=== PATIENT | female | born 1965 | race Caucasian/White ===

== ENCOUNTER 2017-03-30 10:29 | Day surgery (SDC) | payer OTHER ==
[2017-03-30] MEDS ORDERED: LACTATED RINGERS 1,000 ML IV ONE (10:49)
[2017-03-30] MEDS ORDERED: MIDAZOLAM 2 MG/2 ML VIAL IVP ONE (11:22)
[2017-03-30] MEDS ORDERED: fentaNYL 100 MCG/2 ML VIAL IVP ONE (11:22)
== END 2017-03-30 10:30 | disposition home or self-care (01) ==
PROC: 0DJD8ZZ Inspection of Lower Intestinal Tract, Via Natural or Artificial Opening Endoscopic (ICD-10-PCS; principal; 2017-03-30 11:30)
DX: Z12.11 Encounter for screening for malignant neoplasm of colon (principal); K57.30 Diverticulosis of large intestine without perforation or abscess without bleeding; I10 Essential (primary) hypertension; Z82.49 Family history of ischemic heart disease and other diseases of the circulatory system; Z80.0 Family history of malignant neoplasm of digestive organs; Z80.8 Family history of malignant neoplasm of other organs or systems; Z87.891 Personal history of nicotine dependence
CPT/HCPCS: 45378; J7120

== ENCOUNTER 2020-01-23 10:45 | Emergency (ER) | payer OTHER ==
[2020-01-23 11:43] LABS: RAPID STREP SCREEN Negative (Negative)
[2020-01-23] MEDS ORDERED: ACETAMINOPHEN 325 MG TABLET PO STA (12:44)
[2020-01-23] MEDS ORDERED: IBUPROFEN 600 MG TABLET PO STA (12:44)
[2020-01-23 14:24] VITALS: BP 122/79
--- NOTE | 2020-01-23 19:59 | ED Physician Documentation ---
History of Present Illness - Stated complaint Stated Complaint: SORE THROAT - Chief complaint Chief Complaint: Heent - History obtained from History obtained from: Patient - Additonal information Additional information: Patient comes emergency department complaining of sore throat, rhinorrhea, and body aches for the last several days. She states she has had temperatures up to 102 at home a few days ago, but was one 1.5 this morning. Patient denies specific sick contacts. She states she has not really been coughing any has not had much of a cough at all. She denies chest pain or shortness of breath. No abdominal pain or vomiting. Patient states that she is otherwise fairly healthy. She denies headache. No ear pain. No other complaints at this time. She has had a tonsillectomy in the distant past, and states that she always has some degree of left anterior cervical lymphadenopathy Review of Systems Ten Systems: 10 systems reviewed and negative Constitutional: reports: Fever, Myalgias Eyes: reports: Reviewed and negative Ears: reports: Reviewed and negative Nose: reports: Rhinorrhea / runny nose, Congestion Throat: reports: Sore throat Cardiac: reports: Reviewed and negative Respiratory: reports: Reviewed and negative GI: reports: Reviewed and negative : reports: Reviewed and negative Skin: reports: Reviewed and negative Musculoskeletal: reports: Reviewed and negative Neurologic: reports: Reviewed and negative Psychiatric: reports: Reviewed and negative Endocrine: reports: Reviewed and negative Immunocompromised: reports: Reviewed and negative PD PAST MEDICAL HISTORY - Past Medical History Cardiovascular: None Respiratory: None Endocrine/Autoimmune: None GI: None : None HEENT: None Psych: None Musculoskeletal: None Derm: None - Past Surgical History Past Surgical History: Yes General: Appendectomy /CAR ICER: Hysterectomy HEENT: Tonsil/Adenoidectomy - Present Medications Home Medications: Ambulatory Orders Medication Instructions Recorded Confirmed Ascorbic Acid [Vitamin C] 1,000 mg PO DAILY 03/30/17 03/30/17 Vitamin B Complex 1 each PO DAILY 03/30/17 03/30/17 - Allergies Allergies/Adverse Reactions: Allergies Allergy/AdvReac Type Severity Reaction Status Date / Time No Known Drug Allergies Allergy Verified 01/23/20 11:13 - Social History Does the pt smoke?: No Smoking Status: Never smoker Does the pt drink ETOH?: Yes Does the pt have substance abuse?: No - Immunizations Immunizations are current?: Yes - POLST Patient has POLST: No PD ED PE NORMAL - Vitals Vital signs reviewed: Yes - General General: Alert and oriented X 3, No acute distress - HEENT HEENT: Atraumatic, PERRL, EOMI, Ears normal, Moist mucous membranes, Pharynx benign - Neck Neck: Supple, no meningeal sign, Other (Patient has moderate left-sided anterior cervical lymphadenopathy.) - Cardiac Cardiac: RRR, No murmur - Respiratory Respiratory: Clear bilaterally - Abdomen Abdomen: Soft, Non tender, Non distended - Derm Derm: Warm and dry - Extremities Extremities: No deformity - Neuro Neuro: Alert and oriented X 3 - Psych Psych: Normal mood, Normal affect Results - Vitals Vitals: Vital Signs - 24 hr 01/23/20 01/23/20 11:13 14:24 Temperature 37.5 C 37.1 C Heart Rate 85 62 Respiratory 15 18 Rate Blood Pressure 138/92 H 122/79 O2 Saturation 98 97 Oxygen O2 Source Room air - Labs Labs: Laboratory Tests 01/23/20 01/23/20 11:15 13:15 Influenza A (Rapid) Negative Influenza B (Rapid) Negative Group A Strep Rapid Negative PD MEDICAL DECISION MAKING - ED course Complexity details: reviewed old records, reviewed results, re-evaluated patient, considered differential, d/w patient, d/w family ED course: Patient was worked up in the emergency department with influenza and strep test, both of which were found to be negative. She was afebrile here, but was given Tylenol and ibuprofen for comfort and fever prevention. We have discussed that this is most likely a viral syndrome with one of the many flulike viruses that go around this time of year, and that this will pass on its own. We have discussed home management of the symptoms, as well as the usual indications for return. Departure - Departure Disposition: 01 Home, Self Care Clinical Impression: Viral syndrome Condition: Fair Instructions: ED Viral Syndrome Comments: Your influenza and strep tests are negative. Most likely, you have 1 of the many flulike viruses that go around this time a year. Please take ibuprofen and Tylenol, as needed for fever. Drink plenty of fluids and get rest to help your body heal. A virus is not treatable with antibiotics, and will resolve on its own Discharge Date/Time: 01/23/20 14:25
== END 2020-01-23 14:25 | disposition home or self-care (01) ==
LOC: ED 10:45
DX: B34.9 Viral infection, unspecified (principal)
CPT/HCPCS: 87070; 87275; 87276; 87430; 99283; 99284; A9270